=== PATIENT | female | born 1975 | race Caucasian/White ===

== ENCOUNTER 2016-11-26 10:22 | Emergency (ER) | payer OTHER ==
[2016-11-26] MEDS ORDERED: KETOROLAC TROMETHAMINE 60 MG/2 ML VIAL IM ONE ×2 (11:08→11:15)
[2016-11-26 11:13] LABS: Urine Bilirubin Negative (NEGATIVE); Urine Ketone Negative (NEGATIVE); Urine Protein Negative (NEGATIVE); Urine Specific Gravity 1.015 SP.GR. (1.005-1.010); Urine Urobilinogen Normal (NORMAL)
--- NOTE | 2016-11-26 11:17 | ERNOTE ---
ER Female HPI Date of Service: 11/26/16 Stated Complaint: ABD/BACK PAIN Presenting Symptoms: dysuria Time Seen by Provider: 11/26/16 10:58 Source: patient, RN notes reviewed Exam Limitations: no limitations Immunizations: IMMUNIZATION HX Immunizations Up to Date Yes History of Influenza Vaccine No Hx Pneumococcal Vaccination No Allergies/Adverse Reactions: Allergies codeine [Codeine] Allergy (Mild, Verified 11/26/16 10:35) HIVES, VOMITING iodine Allergy (Mild, Verified 11/26/16 10:35) TOPICAL - HIVES, IVP DYE OK meperidine HCl [From Demerol] Adverse Reaction (Mild, Verified 11/26/16 10:35) Vomiting prochlorperazine edisylate [From Compazine] Adverse Reaction (Mild, Verified 10/31 10:35) IRRITABLE prochlorperazine maleate [From Compazine] Adverse Reaction (Mild, Verified 11/26 10:35) IRRITABLE hydromorphone HCl [From Dilaudid] Adverse Reaction (Verified 11/26/16 10:35) Nausea Home Medications: HOME MEDICATIONS Albuterol Sulfate [Proair Hfa] 2 puff IH Q4H PRN 10/15/15 [Last Taken Unknown] Sucralfate [Carafate] 1 gm PO BID 10/15/15 [Last Taken Unknown] Topiramate [Topamax] 200 mg PO BID 10/15/15 [Last Taken Unknown] Zolpidem Tartrate [Ambien] 10 mg PO HS PRN 10/15/15 [Last Taken Unknown] Albuterol Sulfate [Ventolin HFA] 1 puff IH Q6H 09/18/16 [Last Taken Unknown] Azithromycin [Zithromax] 250 mg PO DAILY #6 tablet 09/18/16 [Last Taken Unknown] Benzonatate [Tessalon Perle] 100 mg PO TID PRN #21 capsule 09/18/16 [Last Taken Unknown] Rizatriptan Benzoate [Maxalt] 5 mg PO ONCE PRN 09/18/16 [Last Taken Unknown] Sulindac 200 mg PO BID PRN 09/18/16 [Last Taken Unknown] Sulfamethoxazole/Trimethoprim [Bactrim Ds] 1 tab PO BID #10 tab 11/26/16 [Last Taken Unknown] - History of Present Illness Narrative: Adela is a 41 year old female who presents to the ED for urinary symptoms. She began having some burning after voiding a few days ago. She has a history of interstitial cystitis, so she attributed the symptoms to this and began drinking more water. She started having low abdominal and back pain last evening with nausea and chills. She has been taking Vicodin without improvement. She did take Azo today and got some relief. Timing: Present: constant, getting worse Quality: Present: severe Onset Location: Present: LLQ, suprapubic Radiation: Present: other - low back Activities at Onset: Present: none Prior Abdominal Problems: Present: similar symptoms Prior Treatment: Present: recently seen. Absent: treated by physician Review of Systems - Review of Systems Constitutional: Present: chills, malaise EYE: Present: no symptoms reported ENT: Present: no symptoms reported Respiratory: Present: no symptoms reported Cardiology: Present: no symptoms reported Gastrointestinal/Abdominal: Present: nausea, abdominal pain. Absent: vomiting, diarrhea, constipation, eating less, drinking less Genitourinary: Present: pain, dysuria. Absent: frequency, hematuria Musculoskeletal: Present: back pain. Absent: neck pain Skin: Present: no symptoms reported Neurological: Present: headache. Absent: dizziness/light-headedness Endocrine: Present: no symptoms reported Hematologic/Lymphatic: Present: no symptoms reported Psych: Present: no symptoms reported - Patient's Past Medical History Patient History - Medical: Anxiety, Fibromyalgia, Headache, Kidney stone, Migraines, Seizures, Other Patient History - Cardiac/Respiratory: No pertinent hx Patient History - Cancer: No Hx of Cancer Patient History - Surgical Procedures: Back Surgery, Hysterectomy - Family History Mother Family History - Medical: Diabetes Type 2 Family History - Cardiac/Respiratory: Hypertension Father Family History - Medical: Family History - Cardiac/Respiratory: Hypertension, Other - Social History Living Situations: home Smoking Status: Current every day smoker Have you smoked in the past 12 months: Yes Do you dip or chew tobacco: No Alcohol Use: none Drug Use: benzodiazepine, other Physical Exam - Physical Exam General Appearance: Present: wd/wn, alert, mild distress Neck: Present: normal inspection, nontender, supple Respiratory: Present: no respiratory distress, normal breath sounds, no accessory muscle use, lungs clear Cardiovascular/Chest: Present: regular rate, rhythm, no murmur Gastrointestinal/Abdominal: Present: normal bowel sounds, nondistended, soft, tenderness - LLQ and suprapubic Back Exam: Present: no CVA tenderness, no vertebral tenderness Neurological Exam: Present: alert, oriented, normal mood/affect Skin Exam: Present: normal color, warm/dry ED Progress - Results and Orders Patient's Lab Results:: I have reviewed the patient's lab results. - Vital Signs Patient's Vital Signs:: I have reviewed the patient's vital signs. Vital Signs: Vital Signs 11/26/16 10:32 Temperature 36 C L Pulse Rate 73 Respiratory 14 Rate Blood Pressure 99/78 O2 Sat by Pulse 98 Oximetry - Progress/Reassessment Chief Complaint: Urinary Tract Problems Progress:: Unchanged Departure Clinical Impression: Urinary tract infection in female - Departure Disposition: Home Follow Up Needed Condition: Good Instructions: Urinary Tract Infection, Adult, [id number], Form - Excuse from Work, School, or Physical Activity Additional Instructions: Push fluids Continue your routine medications Follow up as needed Referrals: Mauro Clark MD [Primary Care Provider] - Prescriptions: Sulfamethoxazole/Trimethoprim [Bactrim Ds] 1 tab PO BID #10 tab
[2016-11-26 11:23] LABS: Urine Appearance Clear; Urine Bacteria TRACE; Urine Blood 10 /ul (NEGATIVE); Urine Color Yellow; Urine Nitrite Positive (NEGATIVE); Urine RBC 0-5 /hpf (0-5); Urine WBC None Seen /hpf (0-5)
[2016-11-26 11:26] LABS: Hematocrit 39.4 % (37.0-47.0); Hemoglobin 13.3 gm/dL (12.5-16.0); Mean Cell Volume 93.1 fl (78-100); Mean Corpuscular Hemoglobin 31.4 pg (27-31); Mean Corpuscular Hgb Conc 33.8 g/dl (32-36); Mean Platelet Volume 9.9 fl (6.0-9.5); Neutrophil # 4.6 K/mm3 (1.3-6.0); Neutrophil % 62.5 % (42-75.0); Platelet Count 193 K/mm3 (150-450); Red Blood Count 4.23 M/mm3 (4.2-5.4); Red Cell Distribution Width 12.7 % (11.5-14.0); White Blood Count 7.3 K/mm3 (4.0-10.5)
[2016-11-26 11:34] LABS: Albumin * 3.3 gm/dl (3.4-5.0); BUN/Creatinine Ratio 13.9 (9.0-21.6); Bilirubin, Total 0.2 mg/dL (0.0-1.1); Ca. Corrected For Albumin 9.4 mg/dL (8.4-10.2); Calcium * 9.2 mg/dL (7.9-10.9); Carbon Dioxide 21.9 mmol/L (24-32.6); Potassium 3.9 mmol/L (3.4-4.6); Total Protein 6.5 gm/dL (6.2-8.2)
[2016-11-26] MEDS ORDERED: SULFAMETHOXAZOLE/TRIMETHOPRIM 1 TAB TABLET PO ONE (12:20)
[2016-11-26 12:25] VITALS: BP 134/88
[2016-11-26] MEDS ORDERED: SULFAMETHOXAZOLE/TRIMETHOPRIM 1 TAB TABLET ONE (12:26)
== END 2016-11-26 12:33 | disposition home or self-care (01) ==
LOC: ER 10:22
DX: N39.0 Urinary tract infection, site not specified (principal); F17.210 Nicotine dependence, cigarettes, uncomplicated; Z90.710 Acquired absence of both cervix and uterus

== ENCOUNTER 2017-01-20 09:46 | Emergency (ER) | payer OTHER ==
--- OUTSIDE RECORDS SUMMARY | 2017-01-20 10:24 | XMS REPORT | Continuity of Care Document ---
:1975 Author Organization [facility] [place] [address] Care Team Providers Name Role Phone Sunil Olivera Primary Care Provider [phone] Source Comments This disclosure is being made pursuant to the [employer] program and maynot contain all information available regarding this patient.[facility] Active Allergies and Adverse Reactions Allergen Noted Date Severity Reactions Comments Adhesive Tape 10/11/2012 Low Rash Use paper tape Codeine 10/03/2012 High Hives,Nausea And Takes hydrocodone at home Vomiting with no complications Compazine 10/03/2012 Other (See Comments) Causes severe agitation Demerol 10/03/2012 Medium Nausea And Vomiting Iodine 10/03/2012 High Hives Tolerates IVP dye with no complications Current Medications Be aware that medications may not be up to date as of this document. Alwaysverify current medications with the patient. Prescription Sig. Disp. Refills Start Date End Date Status topiramate (TOPAMAX) Take 200 mg by Active 200 MG tablet mouth 2 (two) times daily. methimazole (TAPAZOLE) Take 5 mg by Active 5 MG tablet mouth 2 (two) times daily. zolpidem (AMBIEN) 10 MG Take 10 mg by Active tablet mouth nightly. baclofen (LIORESAL) 10 Take 10 mg by Active MG tablet mouth 2 (two) times daily as needed. oxyCODONE-acetaminophen Take 1-2 tablets 100 tablet 0 07/19/2014 Active (PERCOCET) 5-325 MG per by mouth every 4 tablet (four) hours as needed for Pain. oxyCODONE HCl ER Take 1 tablet by 10 tablet 0 07/19/2014 Active (OXYCONTIN) 10 MG T12A mouth every 12 12 hr tablet (twelve) hours. omeprazole (PRILOSEC) Take 1 capsule 28 capsule 0 07/19/2014 Active 20 MG capsule by mouth every morning before breakfast. ondansetron Take 1 tablet by 40 tablet 0 07/19/2014 Active (ZOFRAN-ODT) 4 MG mouth every 8 disintegrating tablet (eight) hours as needed for Nausea. aspirin 325 MG EC Take 1 tablet by 56 tablet 0 07/19/2014 Active tablet mouth 2 (two) times daily with meals. naproxen (NAPROSYN) 500 Take 1 tablet by 56 tablet 0 07/19/2014 Active MG tablet mouth 2 (two) times daily with meals. Active Problems Problem Noted Date S/P diagnostic right hip arthroscopy 07/19/2014 Anxiety 07/19/2014 History of seizures 07/19/2014 Hyperthyroidism 07/19/2014 PONV (postoperative nausea and vomiting) 07/19/2014 Most Recent Encounters Date Type Specialty Providers Description 10/29/2016 Data Import Social History Tobacco Use Types Packs/Day Years Used Date Current Some Day Smoker 0.5 12 Smokeless Tobacco: Never Used Tobacco Cessation:Ready to Quit: No; Counseling Given: Yes Comments:Has literature Alcohol Use Drinks/Week oz/Week Comments No Last Filed Vital Signs Vital Sign Reading Time Taken Blood Pressure 80/44 07/20/2014 7:32 AM CDT Pulse 41 07/20/2014 7:32 AM CDT Temperature 36.7 C (98 F) 07/20/2014 7:32 AM CDT Respiratory Rate 14 07/20/2014 7:32 AM CDT Height 1.575 m (5' 2") 07/19/2014 1:27 PM CDT Weight 63.957 kg (141 lb) 07/19/2014 1:27 PM CDT Body Mass Index 25.78 07/19/2014 1:27 PM CDT Oxygen Saturation 99% 07/20/2014 7:32 AM CDT Plan of Care Health Maintenance Due Date Last Done Comments Tetanus/Pertussis (1 - Tdap) 1994 Pap Smear 01/25/1996 Influenza Immunization (#1) 2016 Results from Last 3 Months Not on file
--- OUTSIDE RECORDS SUMMARY | 2017-01-20 10:24 | XMS REPORT | Continuity of Care Document ---
:1975 Author Organization [facility] ([facility]) Address [address] [place] [address] Phone [phone] Care Team Providers Name Role Phone Sunil Olivera Primary Care Provider [phone] Source Comments This disclosure is being made pursuant to the Care Everywhere program, applicable federal and state laws, and may not contain all informaitonavailable regarding this patient.[facility] ([facility]) Active Allergies and Adverse Reactions Allergen Noted Date Severity Reactions Comments Adhesive 08/12/2016 Low Rash Use paper tape Codeine Urticaria (Hives),Nausea & Vomiting Iodine 08/12/2016 High Urticaria (Hives) Tolerates IVP dye with no complications Meperidine Nausea & Vomiting severe nausea /vomiting Povidone-Iodine Urticaria (Hives) topical- patient has had intravenous dyes without problems Prochlorperazine 08/12/2016 Agitation Causes severe agitation Promethazine 11/04/2009 Agitation Severe agitation Current Medications Prescription Sig. Disp. Refills Start Date End Date Status topiramate (TOPAMAX) 50 Take 200 mg by Active mg tablet mouth 2 times daily SUCRALFATE (CARAFATE PO) Active zolpiDEM 10 mg tablet Take 10 mg by mouth 5 07/23/2016 Active at bedtime. aspirin 325 mg EC tablet Take 325 mg by 07/19/2014 Active mouth. naproxen 500 mg tablet Take 500 mg by 07/19/2014 Active mouth. HYDROcodone-acetaminophen Take 1 tablet by Active 5-325 mg per tablet mouth every 4 hours as needed. Active Problems Problem Noted Date Right shoulder pain 09/03/2015 Lumbago 11/28/2008 Social History Tobacco Use Types Packs/Day Years Used Date Current Every Day Smoker Cigarettes 0.5 15 Smokeless Tobacco: Never Used Alcohol Use Drinks/Week oz/Week Comments No Last Filed Vital Signs Vital Sign Reading Time Taken Blood Pressure 132/81 08/12/2016 8:48 AM CDT Pulse 68 08/12/2016 8:48 AM CDT Temperature 35.6 C (96.1 F) 08/12/2016 8:48 AM CDT Respiratory Rate - - Height 1.626 m (5' 4.02") 08/12/2016 8:48 AM CDT Weight 68.04 kg (150 lb) 08/12/2016 8:48 AM CDT Body Mass Index 25.73 08/12/2016 8:48 AM CDT Oxygen Saturation - - Plan of Care Date Type Specialty Providers Description 02/26/2017 Wait List Orthopaedic 02/26/2017 Appointment Orthopaedic Ishmael Ruggiero MD Subj: Appointment [address] [place] [address] [phone] (Fax) Health Maintenance Due Date Last Done Comments Hepatitis B Vaccine (1 of 3 - Primary Series) 1975 Tdap Vaccine 1986 Lipid Disorder Screening 1993 MMR Vaccine 1993 Td Vaccine 1993 Pneumococcal Vaccine (1 of 1 - PPSV23) 1994 Cervical Cancer Screening 2005 Mammogram 2015 Influenza Vaccine: Seasonal (#1) 06/15/2016 Results from Last 3 Months Not on file
[2017-01-20 10:34] LABS: Hematocrit 39.3 % (37.0-47.0); Hemoglobin 13.4 gm/dL (12.5-16.0); Mean Corpuscular Hemoglobin 31.4 pg (27-31); Mean Corpuscular Hgb Conc 34.1 g/dl (32-36); Mean Platelet Volume 9.6 fl (6.0-9.5); Neutrophil # 4.8 K/mm3 (1.3-6.0); Neutrophil % 60.7 % (42-75.0); Platelet Count 229 K/mm3 (150-450); Red Blood Count 4.27 M/mm3 (4.2-5.4); Red Cell Distribution Width 13.2 % (11.5-14.0); White Blood Count 7.9 K/mm3 (4.0-10.5)
[2017-01-20] MEDS: MAG HYDROX/ALUMINUM HYD/SIMETH 30 ML UDC PO ONE (10:36)
[2017-01-20] MEDS: SUCRALFATE 1 G/10 ML UDC PO ONE (10:36)
[2017-01-20] MEDS: LIDOCAINE HCL 20 ML UDC PO ONE (10:36)
--- NOTE | 2017-01-20 10:41 | ERNOTE ---
Abdominal HPI - Narrative Date of Service: 01/20/17 - General Chief Complaint: Abdominal Pain Time Seen by Provider: 01/20/17 10:09 Source: patient Exam Limitations: no limitations - Immun/Allergies/Home Medications Immunizatons: IMMUNIZATION HX Immunizations Up to Date Yes History of Influenza Vaccine No Hx Pneumococcal Vaccination No Allergies/Adverse Reactions: Allergies codeine [Codeine] Allergy (Mild, Verified 01/20/17 09:53) HIVES, VOMITING iodine Allergy (Mild, Verified 01/20/17 09:53) TOPICAL - HIVES, IVP DYE OK meperidine HCl [From Demerol] Adverse Reaction (Mild, Verified 01/20/17 09:53) Vomiting prochlorperazine edisylate [From Compazine] Adverse Reaction (Mild, Verified 07/01 09:53) IRRITABLE prochlorperazine maleate [From Compazine] Adverse Reaction (Mild, Verified 01/20 09:53) IRRITABLE hydromorphone HCl [From Dilaudid] Adverse Reaction (Verified 01/20/17 09:53) Nausea Home Medications: HOME MEDICATIONS Albuterol Sulfate [Proair Hfa] 2 puff IH Q4H PRN 10/15/15 [Last Taken Unknown] Topiramate [Topamax] 200 mg PO BID 10/15/15 [Last Taken Unknown] Zolpidem Tartrate [Ambien] 10 mg PO HS PRN 10/15/15 [Last Taken Unknown] Rizatriptan Benzoate [Maxalt] 5 mg PO ONCE PRN 09/18/16 [Last Taken Unknown] Hydrocodone/Acetaminophen [Vicodin 5-300 mg Tablet] 1 tab PO Q6H PRN 01/20/17 [ Last Taken Unknown] Omeprazole [Prilosec] 20 mg PO DAILY #30 cap 01/20/17 [Last Taken Unknown] Sucralfate [Carafate] 1 gm PO QID #40 tablet 01/20/17 [Last Taken Unknown] - History of Present Illness Narrative: Pt. comes in with c/o LUQ abd pain that started yesterday after she ate cake for breakfast. Pt. states that the pain improved with rest but worsens with each time that she eats. Pt. denies any SOB, CP, NVD, constipation, states that LBM was yesterday. Pt. states that she has a hx of ulcers and is under treatment with PRN carafate but it has not helped that his time. Review of Systems - Review of Systems Constitutional: Present: no symptoms reported. Absent: recent illness, fever, chills, weakness, fatigue, malaise EYE: Present: no symptoms reported ENT: Present: no symptoms reported Respiratory: Present: no symptoms reported. Absent: shortness of breath, cough , wheezing Cardiology: Present: no symptoms reported. Absent: chest pain, palpitations, edema Gastrointestinal/Abdominal: Present: nausea, abdominal pain, other - loose stools recently an more than usual. Absent: vomiting, diarrhea, constipation Genitourinary: Present: no symptoms reported Musculoskeletal: Present: back pain - L flank. Absent: joint pain Skin: Present: no symptoms reported Neurological: Present: no symptoms reported. Absent: headache, dizziness/light- headedness, numbness, tingling All Other Systems: All systems neg except as marked - Patient's Past Medical History Patient History - Medical: Anxiety, Fibromyalgia, Headache, Kidney stone, Migraines, Seizures Patient History - Cardiac/Respiratory: No pertinent hx Patient History - Cancer: No Hx of Cancer Patient History - Surgical Procedures: Back Surgery, Hysterectomy Patient History - Other: Other - Family History Mother Family History - Medical: Diabetes Type 2 Family History - Cardiac/Respiratory: Hypertension Father Family History - Medical: Family History - Cardiac/Respiratory: Hypertension, Other - Social History Living Situations: home Abuse History: No History of abuse Psych History: Hx of Anxiety Smoking Status: Current every day smoker Alcohol Use: none Drug Use: benzodiazepine, other - Immunizations Immunizations Up to Date: Yes Hx Pneumococcal Vaccination: No History of Influenza Vaccine: No Physical Exam - Physical Exam General Appearance: Present: wd/wn, alert, no apparent distress Eye Exam: Normal inspection: bilateral, PERRL: bilateral, EOMI: bilateral Ears, Nose, Throat: Present: normal ENT inspection, normal pharynx Neck: Present: normal inspection, nontender. Absent: lymphadenopathy (R), lymphadenopathy (L) Respiratory: Present: no respiratory distress, normal breath sounds, no accessory muscle use, chest nontender, lungs clear Cardiovascular/Chest: Present: regular rate, rhythm, no murmur, normal peripheral pulses Gastrointestinal/Abdominal: Present: normal bowel sounds, nondistended, soft, no organomegaly, tenderness - LUQ Back Exam: Present: normal range of motion, no vertebral tenderness, CVA tenderness (L) Extremity Exam: Present: normal inspection, non-tender, normal range of motion, no edema Neurological Exam: Present: alert, oriented, normal mood/affect, no motor/ sensory deficits Skin Exam: Present: normal color, warm/dry. Absent: pallor, skin rash ED Progress - Date and Time Seen: Date and Time: 01/20/17 11:21 Pt. without any laboratory cause for pain and it is not relieved wiht GI cocktail feel taht pt. needs CT scan as she has had multiple images of abd without discernable cause for recurrent abd pain. 01/20/17 14:29 Having ruled out all emergent causes for abd pain feel that this could be ulcerative gastritis and will have Pt. follow up with PCP as she likely needs endoscopy for further diagnosis on non-emergent basis - Results and Orders Patient's Lab Results:: I have reviewed the patient's lab results. - Vital Signs Patient's Vital Signs:: I have reviewed the patient's vital signs. Vital Signs: Vital Signs 01/20/17 09:50 Temperature 36 C L Pulse Rate 84 Respiratory 12 Rate Blood Pressure 119/66 O2 Sat by Pulse 99 Oximetry - CT/Ultrasound CT/Ultrasound Narrative: CT abd negative. - Progress/Reassessment Chief Complaint: Abdominal Pain Departure - Departure Clinical Impression: Gastritis Qualifiers: Gastritis type: other gastritis Chronicity: acute Gastritis bleeding: without bleeding Qualified Code(s): K29.00 - Acute gastritis without bleeding Disposition: Home self-care Condition: Good Instructions: Gastritis, Adult, [id number] Additional Instructions: Please follow up with primary provider in 2-3 days and discuss the need for endoscopy. Also take prilosec daily and increase carafate to four times a day before meals. Referrals: Mauro Clark MD [Primary Care Provider] - Prescriptions: Omeprazole [Prilosec] 20 mg PO DAILY #30 cap Sucralfate [Carafate] 1 gm PO QID #40 tablet
[2017-01-20 10:46] LABS: Urine Bilirubin Negative (NEGATIVE); Urine Blood 25 /ul (NEGATIVE); Urine Ketone Negative (NEGATIVE); Urine Nitrite Negative (NEGATIVE); Urine Protein Negative (NEGATIVE); Urine Specific Gravity 1.015 SP.GR. (1.005-1.010); Urine Urobilinogen Normal (NORMAL)
[2017-01-20 10:51] LABS: Albumin * 3.5 gm/dl (3.4-5.0); Anion Gap 14.8 mmol/L (6.8-13.8); Bilirubin, Total 0.2 mg/dL (0.0-1.1); Ca. Corrected For Albumin 9.1 mg/dL (8.4-10.2); Carbon Dioxide 25.1 mmol/L (24-32.6); Potassium 3.9 mmol/L (3.4-4.6); Total Protein 6.8 gm/dL (6.2-8.2)
[2017-01-20 10:56] LABS: Urine Appearance Clear; Urine Bacteria None Seen; Urine Color Yellow; Urine RBC 0-5 /hpf (0-5); Urine WBC None Seen /hpf (0-5)
[2017-01-20] MEDS ORDERED: KETOROLAC TROMETHAMINE 60 MG/2 ML VIAL IM ONE (11:30)
[2017-01-20] MEDS ORDERED: DIATRIZOATE MEGLU/DIATRIZO SOD 30 ML BTL ONE (11:30)
[2017-01-20] MEDS: DIATRIZOATE MEGLU/DIATRIZO SOD 30 ML BTL PO ONE (11:37)
[2017-01-20] MEDS: KETOROLAC TROMETHAMINE 60 MG/2 ML VIAL IM ONE (11:37)
[2017-01-20 15:09] VITALS: BP 123/63
== END 2017-01-20 14:46 | disposition home or self-care (01) ==
LOC: ER 09:46
DX: K29.00 Acute gastritis without bleeding (principal); F17.210 Nicotine dependence, cigarettes, uncomplicated

== ENCOUNTER 2017-06-22 13:01 | Day surgery (SDC) | payer OTHER ==
--- OUTSIDE RECORDS SUMMARY | 2017-06-22 13:04 | XMS REPORT | Clinical Summary ---
:1975 Author Organization [facility] [employer] [place] [address] Care Team Providers Name Role Phone Unavailable Primary Care Provider Unavailable Source Comments This disclosure is being made pursuant to the [employer]av[employer] program and maynot contain all information available regarding this patient.[facility] Allergies Active Allergy Reactions Severity Noted Date Comments Adhesive Tape Rash Low 10/11/2012 Use paper tape Codeine Hives,Nausea And High 10/03/2012 Takes hydrocodone at home Vomiting with no complications Compazine Other (See Comments) 10/03/2012 Causes severe agitation Demerol Nausea And Vomiting Medium 10/03/2012 Iodine Hives High 10/03/2012 Tolerates IVP dye with no complications Current [...] 07/19/2014 PONV (postoperative nausea and vomiting) 07/19/2014 Family History Medical History Relation Name Comments Anesth problems Mother PONV Relation Name Status Comments Mother Social History Tobacco Use Types Packs/Day Years Used Date Current Some Day Smoker 0.5 12 Smokeless Tobacco: Never Used Tobacco Cessation:Ready to Quit: No; Counseling Given: Yes Comments:Has literature Alcohol Use Drinks/Week oz/Week Comments No Sex Assigned at Date Recorded Not on file Last Filed Vital Signs Vital Sign Reading Time Taken Blood Pressure 80/44 07/20/2014 7:32 AM CDT Pulse 41 07/20/2014 7:32 AM CDT Temperature 36.7 C (98 F) 07/20/2014 7:32 AM CDT Respiratory Rate 14 07/20/2014 7:32 AM CDT Oxygen Saturation 99% 07/20/2014 7:32 AM CDT Inhaled Oxygen Concentration - - Weight 64 kg (141 lb) 07/19/2014 1:27 PM CDT Height 157.5 cm (5' 2") 07/19/2014 1:27 PM CDT Body Mass Index 25.79 07/19/2014 1:27 PM CDT Plan of Treatment Health Maintenance Due Date Last Done Comments Tetanus/Pertussis (1 - Tdap) 1994 Pap Smear 01/25/1996 INFLUENZA IMMUNIZATION (#1) 2017 Implants Implanted Type Area Shader And Toner Device Expiration Model / Identifier Date Serial / Lot Arthrex 2.9 X 15.5 Mm Hip Pushlock Right: 04/12/2014 [id number] / Implanted:Qty: 2 on 10/13/2012 by Momo Renee, Hip / [id number] Sut Anchr Biorapt Knotless Hip - [id number] Right: [employer] 04/18 [id number] / Implanted:Qty: 1 on 07/19/2014 by Momo Renee, Hip / [id number] Sut Anchr Biorapt Knotless Hip - [id number] Right: [employer]W 04/18 [id number] / Implanted:Qty: 1 on 07/19/2014 by Momo Renee, Hip / [id number] Results Not on filefrom Last 3 Months Insurance Payer Benefit Plan / Subscriber ID Type Phone Address [facility] [id number] [id number] [place] [address] [phone] [address] [phone] Home: [phone]
[2017-06-22 13:22] VITALS: BP 119/71
--- NOTE | 2017-06-22 14:27 | OR ---
Anesthesia Pre Procedure Eval Date of Service: 06/22/17 Pre Procedure Evaluation: Last Vital Signs Temp 36.4 C L 06/22/17 13:18 Pulse 70 06/22/17 13:18 Resp 18 06/22/17 13:18 BP 119/71 06/22/17 13:18 Pulse Ox 98 06/22/17 13:18 O2 Oxygen Delivery Method Room Air Anesthesia Pre Procedure Evaluation DATE: 06/22/2017. TIME: 1330. INDICATIONS: Right leg radiculopathy status post lumbar fusion. PAST MEDICAL HISTORY: Is a 42-year-old female with a history of lumbar surgery 3. She has had recent right hip surgery for labral repair. She has had a right-sided neural foraminal injection with good relief in the past. She presents today with increased anxiety related to neural foraminal injection. She states that she is unsure that she'll be able to tolerate the procedure at this time. An in-depth review of fluoroscopic guided versus CT guided fluoroscopy was discussed with the patient. The patient feels she would tolerate a CT-guided neural foraminal injection better than a fluoroscopic guided injection. EXAM: MRI report and films were reviewed. Pain is 10/10 on pain scale at present. PLANNED PROCEDURE: Fluoroscopic guided neural foraminal injection is canceled and patient was rescheduled for CT-guided procedure. Home Medications: HOME MEDICATIONS Albuterol Sulfate [Proair Hfa] 2 puff IH Q4H PRN 10/15/15 [Last Taken Unknown] Topiramate [Topamax] 200 mg PO BID 10/15/15 [Last Taken Unknown] Zolpidem Tartrate [Ambien] 10 mg PO HS PRN 10/15/15 [Last Taken Unknown] HYDROcodone/ACETAMINOPHEN [Vicodin 5-300 mg Tablet] 1 tab PO BID PRN 01/20/17 [ Last Taken Unknown] Naproxen [Naprosyn] 500 mg PO BID 06/19/17 [Last Taken Unknown] Omeprazole 40 mg PO BID 06/19/17 [Last Taken Unknown] Ondansetron HCl [Zofran] 4 mg PO QID 06/19/17 [Last Taken Unknown] Ranitidine HCl [Zantac] 300 mg PO HS 06/19/17 [Last Taken Unknown] Rizatriptan Benzoate [Maxalt] 10 mg PO DAILY PRN MDD 30MG 06/19/17 [Last Taken Unknown]
== END 2017-06-22 13:02 | disposition home or self-care (01) ==
LOC: AMB 13:01
PROVIDERS: ATTEND Orthopaedic Surgery Orthopaedic Surgery of the Spine
DX: M54.16 Radiculopathy, lumbar region (principal)

== ENCOUNTER 2017-08-03 11:20 | Day surgery (SDC) | payer OTHER ==
[~2017-08-03 11:20] MED LIST: RINGER'S SOLUTION,LACTATED 1,000 ML IV PRN
[2017-08-03] MEDS ORDERED: RINGER'S SOLUTION,LACTATED 1,000 ML IV ONE (12:25)
[2017-08-03] MEDS ORDERED: RINGER S LACTATED IV ONE (12:40)
--- NOTE | 2017-08-03 12:48 | OR ---
Operative Report - Dictated Report Narrative: Date: 08/03/2017 Preop dx: Hx PUD, Weight loss, Fam Hx colon CA, Screen for colon cancer. Postop dx: Esophagitis, Proctitis Procedure: Esophagogastroduodenoscopy with biopsy. Total colonoscopy with biopsy. Surgeon: Stephen Butler MD Anesthesia: MAC per [facility] EBL: minimal Specimens: Antrum for CLOtest. Antrum for anatomic path. GE junction. Descending colon. Rectum Description: After informed consent a bite block was inserted and IV sedation was administered per [facility]. Flexible video endoscope was inserted through the bite block, through the posterior pharynx and into the esophagus under direct vision. The scope was then advanced through the esophagus, stomach and into the duodenum. The duodenum was grossly normal without ulceration. The antrum was grossly normal without ulceration. 2 biopsies taken as listed above. The body of the stomach was grossly normal. Retroflexion of the scope within the stomach revealed a normal GE junction without hiatal herniation. Endoscope was withdrawn into the distal esophagus. A small area of erythema was biopsied at the GE jct. Endoscope was withdrawn through the remainder of the esophagus and demonstrated esophagitis. Photodocumentation of this finding was taken. The scope was withdrawn. The patient was rolled into the left lateral decubitus position. A flexible fiberoptic video colonscope was introduced and advanced under direct vision without difficulty to the cecum. The usual landmarks were identified. The mucosal vasculature was injected from the mid-transverse colon distally. A biopsy of this was taken in the descending colon. There was marked injection within the rectum and a biopsy was taken of this as well. No other abnormality was seen throughout. No diverticulosis. No suspicious masses or polyps were seen. The patient tolerated the procedure well without apparent complications and was discharged from the endoscopy suite in stable condition. RECOMMENDATIONS: Continue acid suppression. Further recommendations pending path results. Pt is to follow-up with primary next week.
[2017-08-03 14:25] VITALS: BP 99/72
== END 2017-08-03 11:21 | disposition home or self-care (01) ==
LOC: AMB 11:20
PROVIDERS: ATTEND Specialist
PROC: 0DBM8ZX Excision of Descending Colon, Via Natural or Artificial Opening Endoscopic, Diagnostic (ICD-10-PCS; 2017-08-03)
PROC: 0DBP8ZX Excision of Rectum, Via Natural or Artificial Opening Endoscopic, Diagnostic (ICD-10-PCS; 2017-08-03)
PROC: 0DB48ZX Excision of Esophagogastric Junction, Via Natural or Artificial Opening Endoscopic, Diagnostic (ICD-10-PCS; principal; 2017-08-03 12:20)
PROC: 0DB68ZX Excision of Stomach, Via Natural or Artificial Opening Endoscopic, Diagnostic (ICD-10-PCS; 2017-08-03 12:20)
DX: Z12.11 Encounter for screening for malignant neoplasm of colon (principal); K62.89 Other specified diseases of anus and rectum; K20.9 Esophagitis, unspecified; K52.9 Noninfective gastroenteritis and colitis, unspecified; K29.70 Gastritis, unspecified, without bleeding; R63.4 Abnormal weight loss; E03.9 Hypothyroidism, unspecified; J45.20 Mild intermittent asthma, uncomplicated; F41.1 Generalized anxiety disorder; F17.200 Nicotine dependence, unspecified, uncomplicated; Z68.25 Body mass index [BMI] 25.0-25.9, adult; Z80.0 Family history of malignant neoplasm of digestive organs

== ENCOUNTER 2017-08-04 11:55 | Emergency (ER) | payer OTHER ==
[2017-08-04 12:26] LABS: Hematocrit 41.9 % (37.0-47.0); Hemoglobin 14.4 gm/dL (12.5-16.0); Mean Cell Volume 91.9 fl (78-100); Mean Corpuscular Hemoglobin 31.6 pg (27-31); Mean Corpuscular Hgb Conc 34.4 g/dl (32-36); Mean Platelet Volume 9.6 fl (6.0-9.5); Neutrophil # 6.3 K/mm3 (1.3-6.0); Neutrophil % 64.5 % (42-75.0); Platelet Count 243 K/mm3 (150-450); Red Blood Count 4.56 M/mm3 (4.2-5.4); Red Cell Distribution Width 13.5 % (11.5-14.0); White Blood Count 9.7 K/mm3 (4.0-10.5)
[2017-08-04 12:40] LABS: Albumin * 3.7 gm/dl (3.4-5.0); Anion Gap 15.8 mmol/L (6.8-13.8); BUN/Creatinine Ratio 14.3 (9.0-21.6); Bilirubin, Total 0.2 mg/dL (0.0-1.1); Ca. Corrected For Albumin 8.9 mg/dL (8.4-10.2); Carbon Dioxide 20.2 mmol/L (24-32.6); Total Protein 7.2 gm/dL (6.2-8.2)
--- NOTE | 2017-08-04 13:14 | ERNOTE ---
Abdominal HPI - Narrative Date of Service: 08/04/17 - General Chief Complaint: Abdominal Pain Time Seen by Provider: 08/04/17 13:05 Source: patient Exam Limitations: no limitations - Immun/Allergies/Home Medications Immunizatons: IMMUNIZATION HX Immunizations Up to Date Yes History of Influenza Vaccine No Hx Pneumococcal Vaccination No Allergies/Adverse Reactions: Allergies codeine [Codeine] Allergy (Mild, Verified 08/04/17 12:13) HIVES, VOMITING iodine Allergy (Mild, Verified 08/04/17 12:13) TOPICAL - HIVES, IVP DYE OK sulindac Adverse Reaction (Intermediate, Verified 08/04/17 12:13) BRUISING, FLUID RETENSION, adhesive tape Adverse Reaction (Mild, Verified 08/04/17 12:13) PLASTIC TAPE CAUSES RASH buprenorphine [From Butrans] Adverse Reaction (Mild, Verified 08/04/17 12:13) RASH duloxetine [From Cymbalta] Adverse Reaction (Mild, Verified 08/04/17 12:13) HEADACHE, HOT AND COLD FLASHES hydromorphone HCl [From Dilaudid] Adverse Reaction (Mild, Verified 08/04/17 12: 13) Nausea meperidine HCl [From Demerol] Adverse Reaction (Mild, Verified 08/04/17 12:13) Vomiting pregabalin [From Lyrica] Adverse Reaction (Mild, Verified 08/04/17 12:13) HEADACHE, HOT AND COLD FLASHES prochlorperazine edisylate [From Compazine] Adverse Reaction (Mild, Verified 12:13) IRRITABLE prochlorperazine maleate [From Compazine] Adverse Reaction (Mild, Verified 08/04 12:13) IRRITABLE salicylates Adverse Reaction (Mild, Verified 08/04/17 12:13) STOMACH PAIN Home Medications: HOME MEDICATIONS Albuterol Sulfate [Proair Hfa] 2 puff IH Q4H PRN 10/15/15 [Last Taken Unknown] Topiramate [Topamax] 200 mg PO BID 10/15/15 [Last Taken Unknown] Zolpidem Tartrate [Ambien] 10 mg PO HS PRN 10/15/15 [Last Taken Unknown] Naproxen [Naprosyn] 500 mg PO BID 06/19/17 [Last Taken Unknown] Omeprazole 40 mg PO BID 06/19/17 [Last Taken Unknown] Ondansetron HCl [Zofran] 4 mg PO QID 06/19/17 [Last Taken Unknown] Ranitidine HCl [Zantac] 300 mg PO HS 06/19/17 [Last Taken Unknown] Rizatriptan Benzoate [Maxalt] 10 mg PO DAILY PRN MDD 30MG 06/19/17 [Last Taken Unknown] Aspirin [Aspirin EC] 1,000 mg PO TID 08/02/17 [Last Taken Unknown] Ciclopirox [Penlac 8%] 1 appl TP DAILY 08/02/17 [Last Taken Unknown] Multivitamins [Multivitamin Raffaele] 1 cap PO DAILY 08/02/17 [Last Taken Unknown] rOPINIRole HCL [Requip] 0.5 mg PO HS 08/02/17 [Last Taken Unknown] Ciprofloxacin HCl [Cipro] 500 mg PO BID #20 tab 08/04/17 [Last Taken Unknown] Ondansetron HCl 4 mg PO Q12H PRN #6 tablet 08/04/17 [Last Taken Unknown] metroNIDAZOLE [Flagyl] 500 mg PO Q8H #30 tablet 08/04/17 [Last Taken Unknown] - Pain Score Pain Score #1 Pain Score: 6 Abdominal Pain Onset Location: LLQ - constant, but with movement develops pain to RLE as well Pain Radiation: back - History of Present Illness Narrative: 42yo, F, presents to ER for abdominal pain. She reports having colonoscopy and EGD yesterday. Last pm developed severe abd "tearing, cramping and sharpness". She notes pain to be constant, but much worse with any movement. Dr. Butler did perform colon bx yesterday and she did note bloody mucus yesterday with passing gas. She did have a small BM today, and noted some "old" rust colored blood in stool, but only a small amt. She contacted OR office and spoke to Carrie's nurse and advised to come to ER. Date (Duration): 08/04/17 Time (Timing): 19:00 Timing: constant Quality: sharpness - tearing and cramping Activities at Onset: none Modifying Factors - (Improves): Present: rest Modifying Factors - (Worsens): Present: movement Associated Symptoms: Present: diarrhea-gross blood - last pm, diarrhea-mucous - last pm, nausea. Absent: chest pain, vomiting, shortness of breath Review of Systems - Review of Systems Constitutional: Present: chills. Absent: fever Respiratory: Absent: shortness of breath, cough Cardiology: Absent: chest pain, palpitations Gastrointestinal/Abdominal: Present: nausea, other - bloody mucus . Absent: vomiting, diarrhea, constipation Genitourinary: Absent: frequency, pain, dysuria Skin: Absent: rash - Patient's Past Medical History Patient History - Medical: Arthritis, Chronic Pain, GERD, Hypothyroidism, Migraines Patient History - Cardiac/Respiratory: No pertinent hx Patient History - Cancer: No Hx of Cancer Patient History - Surgical Procedures: Back Surgery, Cholecystectomy, Colonoscopy, EGD, Hysterectomy, T & A Patient History - Other: None - Family History Mother Family History - Medical: Diabetes Type 2 Family History - Cardiac/Respiratory: Hypertension Family History - Cancer: No pertinent family hx Father Family History - Medical: Other Family History - Cardiac/Respiratory: No pertinent hx, Hypertension, Other Family History - Cancer: No pertinent family hx - Social History Living Situations: home Abuse History: No History of abuse Psych History: Hx of Anxiety, Hx of Depression Smoking Status: Current every day smoker Have you smoked in the past 12 months: Yes Alcohol Use: none Drug Use: none - Immunizations Immunizations Up to Date: Yes Hx Pneumococcal Vaccination: No History of Influenza Vaccine: No Physical Exam - Physical Exam General Appearance: Present: wd/wn, alert, other - appears uncomfortable Respiratory: Present: normal breath sounds, no accessory muscle use. Absent: rales, rhonchi, wheezing Cardiovascular/Chest: Present: regular rate, rhythm, no murmur Gastrointestinal/Abdominal: Present: normal bowel sounds, nondistended, soft, tenderness - LLQ ED Progress - Date and Time Seen: Date and Time: 08/04/17 13:35 Dr. Butler spoke with pt. Reviewed labs and xray with him. Recommends CT abd/pelvis w/without contrast. Discussed with pt, she does have topical iodine allergy, but has tolerated oral contrast in the past. 08/04/17 16:[address] results with pt. Will initiate tx for collitis/diverticulitis and have her f/u with Dr. Limon or Dr. Butler's office. She does request zofran for nausea prior to dc. Denies additional pain meds. Advised pt to start OTC gas pills to help with gas pains - Results and Orders Patient's Lab Results:: I have reviewed the patient's lab results. - Vital Signs Patient's Vital Signs:: I have reviewed the patient's vital signs. Vital Signs: Vital Signs 08/04/17 12:10 Temperature 36.9 C Pulse Rate 80 Respiratory 14 Rate Blood Pressure 109/74 O2 Sat by Pulse 98 Oximetry - CT/Ultrasound CT/Ultrasound Narrative: [facility] PATIENT RADIOLOGY STUDY REPORT Patient Patient Name:SYED ENGLISH Date: 1975 Sex: F Order Number: [id number] Unique Exam ID: [id number] Exam Requested: ABDPELW - CT Abdomen/Pelvis W/C * Date Scheduled: 08-04-2017 01:33 PM Study Priority: Requesting Service: Requesting Physician: Malathi Cornelius Reason for Exam: LLE abd pain, colonoscopy with bx yesterday Radiological Report : [facility] [address] [place] [address] NAME: SYED ENGLISH : 1975 MR #: [id number] CC: LOC: ER ADM DATE: X-RAY REPORT [id number] CT/CT Abdomen/Pelvis W/C * Exam Date: 08/04/2017 13:33 Ordering Physician: Malathi Cornelius HISTORY/INDICATION: Left lower quadrant abd pain, colonoscopy with bx yesterday Additional history from technologist: History colonoscopy yesterday, with lower abdominal pain more severe on the left side, started last night, getting worse. TECHNIQUE: Contrast enhanced CT images of the abdomen during portal venous phase obtained. Excretory phase images of the abdomen and pelvis were also obtained. Coronal reconstructions were also submitted. Oral contrast material was given. Dose reduction techniques using the adjustment of the mA and/or kV according to patient size and/ or use of AEC or iterative reconstruction were used in the acquisition of this exam. COMPARISON: Noncontrast CT from 01/20/2017, contrast enhanced CT from 09/30/2015 CT Abdomen/Pelvis W/C * ABDOMEN: Lungs: Mild dependent atelectasis present. Visualized portions of the heart demonstrates no obvious signs of pericardial effusion. Liver: No focal mass or intrahepatic ductal dilation apparent. Gallbladder: Surgically absent. Pancreas: The pancreas appears to be normal in appearance. Spleen: The spleen is unremarkable. Adrenal glands: Unremarkable without focal finding. Kidneys: Normal appearance without focal mass or hydronephrosis. There is a small subcentimeter hypodensity in the lower pole right kidney, too small to characterize definitively but most likely a small cyst, stable since 2014 and likely benign. There is a similar finding in the upper pole left kidney, also stable. Aorta: The aorta is normal in caliber with no evidence for aneurysm. Diameter of the infrarenal segment at the level of the inferior mesenteric artery origin is 1.7 cm. Retroperitoneum: No pathologic size lymphadenopathy or mass within the retroperitoneum is seen. Stomach: Partially opacified stomach grossly unremarkable. Small bowel: Unremarkable, without signs of obstruction, bowel wall thickening, or mesenteric inflammatory changes. Colon: Diverticulosis of the sigmoid colon suggested. Mild bowel wall prominence of the sigmoid colon seen best on series 4 image 70 most likely artifactual from nondistention , but consider possible colitis, although given patient's clinical history, this is probably not likely. No definite signs of definite focal pericolonic inflammatory changes noted. There is no definite signs of extravasation of contrast material or pneumatosis coli or extraluminal gas adjacent to the colon to suggest perforation. Normal caliber appendix seen. Appendix best seen on series 4 image 58-65. Abdominal wall: There is a small fat-containing umbilical hernia. No evidence for intraperitoneal free air. PELVIS: Contrast-filled portions of the urinary bladder demonstrates no focal finding. No definite signs of pelvic lymphadenopathy or masses are noted. There is a small likely physiologic follicular cyst in the right ovary measuring approximately 1.9 cm in greatest dimension. No evidence of free pelvic fluid noted. No evidence for an organized fluid collection/abscess in the pelvis. Bones: Osseous structures appear intact without obvious destructive changes. Patient has surgical changes of L5-S1 anterior spinal fusion. Multiple small bone islands are noted within the bony pelvis. IMPRESSION: 1. Equivocal bowel wall prominence of the sigmoid colon superimposed on diverticular outpouchings. This is probably artifactual from nondistention of the colon but consider colitis or diverticulitis although thought to be less likely given clinical history. 2. No CT signs of colonic perforation or abscess. 3. Additional comments are as above. Electronically signed by Justus Calle M.D.. Justus Calle MD Dict: 08/04/17 1611 Typed: 08/04/17 1611/ 08/04/17 1626 08/04/17 1628 , Approved by: UJSTUS CALLE Approval Date: 08-04-2017 Approval Time: 04:11 PM THIS REPORT WAS RECEIVED FROM THE [facility] - Progress/Reassessment Chief Complaint: Abdominal Pain Departure Clinical Impression: Colitis Diverticulitis Qualifiers: Diverticulitis site: large intestine Diverticulitis bleeding: unspecified bleeding status Diverticulitis complication: without perforation or abscess Qualified Code(s): K57.32 - Diverticulitis of large intestine without perforation or abscess without bleeding - Departure Disposition: Home self-care Condition: Good Instructions: Diverticulitis, [id number] Additional Instructions: Adequate fluid intake Take medications as prescribed Follow up with Dr. Butler/Dr. Limon Return to ER if situation worsens or does not improve Referrals: Mauro Clark MD [Primary Care Provider] - Stephen Butler MD [Associate] - Prescriptions: Ciprofloxacin HCl [Cipro] 500 mg PO BID #20 tab metroNIDAZOLE [Flagyl] 500 mg PO Q8H #30 tablet Ondansetron HCl 4 mg PO Q12H PRN #6 tablet PRN Reason: Nausea
[2017-08-04] MEDS ORDERED: MORPHINE SULFATE 4 MG/ML SYRG IV ONE (13:20)
[2017-08-04] MEDS ORDERED: ONDANSETRON HCL/PF 2 MG/ML VIAL IV ONE ×2 (13:20→16:41)
[2017-08-04] MEDS ORDERED: NORMAL SALINE 1,000 ML IV PRN (13:20)
[2017-08-04] MEDS ORDERED: ONDANSETRON HCL/PF 2 MG/ML VIAL ONE ×2 (13:25→16:39)
[2017-08-04] MEDS ORDERED: MORPHINE SULFATE 4 MG/ML SYRG ONE (13:25)
[2017-08-04] MEDS ORDERED: DIATRIZOATE MEGLUMINE, SODIUM 30 ML BTL PO ONE (13:41)
[2017-08-04] MEDS ORDERED: DIATRIZOATE MEGLUMINE, SODIUM 30 ML BTL ONE (13:45)
[2017-08-04 15:35] LABS: Urine Bilirubin Negative (NEGATIVE); Urine Ketone Negative (NEGATIVE); Urine Nitrite Negative (NEGATIVE); Urine Protein Negative (NEGATIVE); Urine Urobilinogen Normal (NORMAL)
[2017-08-04 15:51] LABS: Urine Appearance Clear; Urine Blood 5 /ul (NEGATIVE); Urine Color Yellow
[2017-08-04 15:52] LABS: Urine Bacteria 1+; Urine RBC None Seen /hpf (0-5); Urine WBC None Seen /hpf (0-5)
[2017-08-04 16:42] VITALS: BP 108/67
== END 2017-08-04 17:05 | disposition home or self-care (01) ==
LOC: ER 11:55
DX: K52.9 Noninfective gastroenteritis and colitis, unspecified (principal); K57.32 Diverticulitis of large intestine without perforation or abscess without bleeding
CPT/HCPCS: 36415; 74020; 74177; 80053; 81001; 82150; 83690; 85025; 96374; 96375; 99283; J2405